=== PATIENT | female | born 1970 | race African-American/Black ===

== ENCOUNTER 2016-10-13 05:58 | Day surgery (SDC) | payer OTHER ==
[2016-10-08 10:46] LABS: BASOPHILS # (AUTO) 0.1 K/uL (0.00-0.22); BASOPHILS % (AUTO) 1.5 % (0.0-2.0); EOSINOPHILS # (AUTO) 0.1 K/uL (0-0.4); EOSINOPHILS % (AUTO) 2.3 % (0.0-4.0); HEMATOCRIT 34.4 % (36-48); HEMOGLOBIN 11.1 g/dL (12.0-16.0); LYMPHOCYTES # (AUTO) 1.3 K/uL (2.5-16.5); LYMPHOCYTES % (AUTO) 21.2 % (20.5-51.1); MEAN CORPUSCULAR HEMOGLOBIN 28 pg (27-31); MEAN CORPUSCULAR HGB CONC 32 g/dL (33-37); MEAN CORPUSCULAR VOLUME 86 fL (80-94); MONOCYTES # (AUTO) 0.4 K/uL (0.8-1.0); MONOCYTES % (AUTO) 6.1 % (1.7-9.3); NEUTROPHILS # (AUTO) 4.4 K/uL (1.8-7.7); NEUTROPHILS % (AUTO) 68.9 % (42.2-75.2); PLATELET COUNT (AUTO) 218 K/uL (140-450); RED CELL DISTRIBUTION WIDTH 13.4 % (11.6-13.7); WHITE BLOOD COUNT (AUTO) 6.3 K/uL (4.8-10.8)
[2016-10-08 11:03] LABS: ALBUMIN 3.7 g/dL (3.4-5.0); ANION GAP 7.9 (8-16); CALCIUM 8.9 mg/dL (8.5-10.1); CARBON DIOXIDE 30.9 mmol/L (21-32); CREATININE 0.8 mg/dL (0.6-1.3); POTASSIUM 3.8 mmol/L (3.5-5.1); TOTAL BILIRUBIN 0.4 mg/dL (0.0-1.0); TOTAL PROTEIN, SERUM 7.4 g/dL (6.4-8.2)
[~2016-10-13] VITALS: Ht 172.7 cm; Wt 74.8 kg
[2016-10-13] MEDS ORDERED: [UNRECOGNIZED DRUG - CODE] PO (07:01)
[2016-10-13] MEDS ORDERED: IRON65TA11 PO (07:01)
[2016-10-13] MEDS ORDERED: LIDOCAINE 2% 100 MG/5 ML SYR IVP ONE (07:21)
[2016-10-13] MEDS ORDERED: PROPOFOL 200 MG/20 ML VIAL IV ONE (07:21)
[2016-10-13] MEDS ORDERED: SEVOFLURANE 250 ML BTL INH ONE (07:21)
[2016-10-13] MEDS ORDERED: MIDAZOLAM 2 MG/2 ML VIAL ONE (07:34)
[2016-10-13] MEDS ORDERED: MORPHINE SULFATE 4 MG/ML SYR IM/IVP PRN (07:40)
[2016-10-13] MEDS ORDERED: IBUPROFEN 800 MG TAB PO PRN (07:40)
[2016-10-13] MEDS ORDERED: ONDANSETRON 4 MG/2 ML VIAL IVP PRN ×2 (07:40→07:45)
[2016-10-13] MEDS ORDERED: ACETAMINOPHEN/CODEINE 300/30MG 1 TAB PO PRN (07:40)
[2016-10-13] MEDS ORDERED: HYDROmorphone 1 MG/ML AMP IVP PRN (07:45)
== END 2016-10-13 09:15 | disposition home or self-care (01) ==
LOC: MDS 05:58 → MMU 06:28 → MDS 09:15
PROVIDERS: ATTEND Obstetrics & Gynecology
DX: N92.1 Excessive and frequent menstruation with irregular cycle (principal); D25.9 Leiomyoma of uterus, unspecified
CPT/HCPCS: 36415; 58120; 80053; 84702; 84703; 85025; J2001; J2250; J2704; J7120